=== PATIENT | male | born 1965 | race Caucasian/White ===

== ENCOUNTER 2023-04-05 10:22 | Emergency (ER) | payer MEDICAID ==
[~2023-04-05] VITALS: Ht 188 cm; Wt 84.5 kg
[2023-04-05 10:56] LABS: BASOPHILS # (AUTO) 0.1 X10'3 (0-0.2); EOSINOPHILS # (AUTO) 0.4 X10'3 (0-0.9); EOSINOPHILS % (AUTO) 5.2 % (0-6); HEMATOCRIT 45.4 % (42.0-52.0); HEMOGLOBIN 15.3 g/dl (14.0-17.9); LYMPHOCYTES # (AUTO) 1.9 X10'3 (1.1-4.8); LYMPHOCYTES % (AUTO) 22.3 % (21-51); MEAN CORPUSCULAR HEMOGLOBIN 29.7 PG (27.0-31.0); MEAN CORPUSCULAR HGB CONC 33.8 g/dL (33.0-36.5); MEAN PLATELET VOLUME 8.4 FL (7.4-10.4); MONOCYTES # (AUTO) 0.8 X10'3 (0-0.9); MONOCYTES % (AUTO) 9.2 % (2-12); NEUTROPHILS # (AUTO) 5.2 X10'3 (1.8-7.7); NEUTROPHILS % (AUTO) 62.3 % (42-75); PLATELET COUNT 278 X10'3 (140-440); RED BLOOD COUNT 5.16 X10'6 (4.70-6.10); WHITE BLOOD COUNT 8.4 X10'3 (4.5-11.0)
[2023-04-05 11:09] LABS: ALANINE AMINOTRANSFERASE 47 U/L (12-78); ALBUMIN 4.3 G/DL (3.4-5.0); ALBUMIN/GLOBULIN RATIO 1.2 (1.1-1.5); ALKALINE PHOSPHATASE 88 IU/L (46-116); ANION GAP 8 (8-16); ASPARTATE AMINO TRANSFERASE 22 U/L (10-37); BILIRUBIN,TOTAL 0.4 MG/DL (0.1-1.0); BLOOD UREA NITROGEN 17 MG/DL (7-18); BUN/CREATININE RATIO 17.7 (10.0-20.0); CALCIUM 9.4 MG/DL (8.5-10.1); CHLORIDE 104 MMOL/L (99-107); CREATININE 0.96 MG/DL (0.60-1.10); GLUCOSE 111 MG/DL (70-104); POTASSIUM 3.9 MMOL/L (3.5-5.1); SODIUM 139 MMOL/L (135-145); TOTAL CARBON DIOXIDE 27.4 MMOL/L (24-32); TOTAL PROTEIN 7.8 G/DL (6.4-8.2); eCRCL 98 ML/MIN; eGFR 80 ML/MIN
[2023-04-05 11:15] LABS: PRO BRAIN NATRIURETIC PEPTIDE < 30 PG/ML (0-125)
--- NOTE | 2023-04-05 11:57 | NUR ---
PT IN` ROOM 7, ON MONITOR. IV SL PLACED. FAMILY AT BS.
--- NOTE | 2023-04-05 13:30 | NUR ---
PT RESTING QUIETLY IN NAD, AT BS
--- NOTE | 2023-04-05 14:49 | NUR ---
PT DC'D TO HOME AFTER PIV WAS DC'D.
[2023-04-05 14:50] VITALS: BP 129/79; PULSE 76; RESP 16; O2SAT 97
== END 2023-04-05 14:58 | disposition home or self-care (01) ==
LOC: ER 10:23
DX: R07.89 Other chest pain (principal); R06.02 Shortness of breath; R05.9 Cough, unspecified; E78.00 Pure hypercholesterolemia, unspecified
CPT/HCPCS: 36415; 71045; 80053; 83880; 84484; 85025; 93005; 99285

== ENCOUNTER 2024-07-14 21:15 | Emergency (ER) | payer MEDICAID ==
[~2024-07-14] VITALS: Ht 188 cm; Wt 72.3 kg
[2024-07-14 21:23] VITALS: BP 143/66; PULSE 62; O2SAT 96
[2024-07-14] MEDS: HYDROcodone/acetaminophen 10/325mg tab PO STA (21:26)
[2024-07-14] MEDS ORDERED: HYDR-3965 PO (22:15)
[2024-07-14 22:41] VITALS: RESP 18
[2024-07-14] MEDS: HYDROcodone/acetaminophen 10/325mg tab PO ONE (22:41)
[2024-07-14 22:55] VITALS: TEMP 98.6
== END 2024-07-14 22:55 | disposition home or self-care (01) ==
LOC: ER 21:16
DX: S92.511A Displaced fracture of proximal phalanx of right lesser toe(s), initial encounter for closed fracture (principal); E78.00 Pure hypercholesterolemia, unspecified; W22.8XXA Striking against or struck by other objects, initial encounter; Y93.89 Activity, other specified; Y92.89 Other specified places as the place of occurrence of the external cause; Y99.8 Other external cause status
CPT/HCPCS: 73660; 99283; A6258